=== PATIENT | female | born 1960 | race Caucasian/White ===

== ENCOUNTER 2017-04-16 15:52 | Inpatient (IN) | payer OTHER ==
[~2017-04-16] VITALS: Ht 152.4 cm; Wt 91.0 kg
[~2017-04-16 15:52] MED LIST: ASPI-516 CHEW; CLAR10CA3 PO; FLUT50SP EACH NARE; HUMALOG SQ; INSU1INJ18 SQ; LISI20TA PO; METF500T4 PO; MISCTAB12; SIMV40TA PO; SITA1TAB2 PO; VITA20003
[2017-04-16 16:02] VITALS: BP 114/68; PULSE 82; RESP 18; TEMP 98.2; O2SAT 99
--- NOTE | 2017-04-16 17:02 | RADRPT ---
EXAM DATE/TIME: 04/16/2017 16:17 [facility] COMPARISON: No previous studies available for comparison. INDICATIONS : Left shoulder pain post fall today MEDICAL HISTORY : None. SURGICAL HISTORY : None. ENCOUNTER: Initial ACUITY: 1 day PAIN SCORE: 10/10 LOCATION: Left proximal humerus FINDINGS: Of the proximal humerus as spares the humeral head. There are extensive degenerative changes at the AC joint and glenoid. Chronic rotator cuff tear suspected. CONCLUSION: Fracture proximal humerus. Emery Jolly MD FACR on April 16, 2017 at 17:00 Board Certified Radiologist. This report was verified electronically.
[2017-04-16] MEDS ORDERED: ONDANSETRON HCL 4 MG/2 ML VIAL IV PUSH ONE (19:30)
[2017-04-16] MEDS ORDERED: MORPHINE SULFATE 4 MG/ML INJ IV PUSH ONE (19:30)
--- NOTE | 2017-04-16 19:30 | PD ---
HPI Chief Complaint: Injury Time Seen by Provider: 19:18 Travel History International Travel<30 days: No Contact w/Intl Traveler<30days: No Traveled to known affect area: No History of Present Illness HPI 56-year-old female with history of diabetes, hypertension, presents via EMS for evaluation of left arm pain. At 3 PM today the patient tripped and fell, injuring her left arm. She notes severe proximal left arm pain, throbbing, constant, worse with movement. She denies any other injuries. She denies any numbness or tingling. She has no other complaints at this time. Her primary care physician is Dr. Azar. [facility] Past Medical History Medical History: Denies Significant Hx ?: Not Past Surgical History Surgical History: No Previous Surgery Social History Alcohol Use: No Tobacco Use: No Substance Use: No Allergies-Medications (Allergen,Severity, Reaction): Coded Allergies: No Known Allergies (Unverified Adverse Reaction, Unknown, 12/22/16) Reported Meds & Prescriptions Reported Meds & Active Scripts Active Humalog Inj (Insulin Human Lispro) 1,000 Unit/10 Ml Vial 18 Units SQ TIDAC Lisinopril-Hctz 20-12.5 Mg Tab 1 Tab PO DAILY Simvastatin 40 Mg Tab 40 Mg PO HS Claritin (Loratadine) 10 Mg Cap 10 Mg PO DAILY Fluticasone Nasal [place] 50 Mcg/Act Naspr 50 Mcg EACH NARE BID 50 mcg/spray Reported Metformin ER (Metformin HCl) 500 Mg [place] 500 Mg PO DAILY With evening meal Januvia (Sitagliptin Phosphate) 100 Mg Tab 100 Mg PO DAILY Basaglar Kwikpen (Insulin Glargine) 100 Unit/Ml Pen 60 Units SQ HS Vitamin D (Cholecalciferol) 2,000 Unit Tab 5,000 Aspirin 81 Mg Chew 81 Mg CHEW DAILY Tumersaid (Misc Natural Products) 1 Tab Tab Review of Systems Except as stated in HPI: all other systems reviewed are Neg Physical Exam Narrative GENERAL: Well-developed well-nourished female appears uncomfortable. SKIN: Warm and dry. HEAD: Atraumatic. Normocephalic. EYES: Pupils equal and round. No scleral icterus. No injection or drainage. ENT: No nasal bleeding or discharge. Mucous membranes pink and moist. NECK: Trachea midline. No JVD. CARDIOVASCULAR: Regular rate and rhythm. No murmur appreciated. RESPIRATORY: No accessory muscle use. Clear to auscultation. Breath sounds equal bilaterally. MUSCULOSKELETAL: There is a left arm splint in place. There is no obvious skin tenting in the proximal left arm. There is generalized tenderness to palpation of the proximal left arm. Limited range of motion secondary to pain. Distal sensation is preserved in the median, radial and ulnar nerve distributions. Radial pulse 2+. NEUROLOGICAL: Awake and alert. No obvious cranial nerve deficits. Motor grossly within normal limits. Normal speech. Data Data Last Documented VS Vital Signs Date Time Temp Pulse Resp B/P (MAP) Pulse Ox O2 Delivery O2 Flow Rate FiO2 04/16/17 19:49 87 16 123/59 (80) 96 Room Air 04/16/17 16:02 98.2 Orders Orders Shoulder, Limited(2vws) (04/16/17 ) Morphine Inj (Morphine Inj) (04/16/17 19:30) Ondansetron Inj (Zofran Inj) (04/16/17 19:30) Electrocardiogram (04/16/17 ) Complete Blood Count With Diff (04/16/17 20:02) Basic Metabolic Panel (Bmp) (04/16/17 20:02) Act Partial Throm Time (Ptt) (04/16/17 20:02) Prothrombin Time / Inr (Pt) (04/16/17 20:02) Elbow, Complete (4 Vws) (04/16/17 ) Diet 1999 Ada Cons Carb (04/16/17 Dinner) Sling And Swathe (04/16/17 ) Consult Orthopedic (04/16/17 ) Admit Order (Ed Use Only) (04/16/17 20:20) Bedside Glucose KHALIF.CSUGAR (04/16/17 20:19) Blood Glucose Goal (Criteria) (04/16/17 20:19) Hypoglycemia 70 Mg/Dl Or < (04/16/17 20:19) Notify Dr: Other (04/16/17 20:19) Dextrose 50% In Ruy (Vial) Inj (D50w (Vi (04/16/17 20:30) Glucagon Inj (Glucagon Inj) (04/16/17 20:30) Insulin Aspart Supplemtl Scale (Novolog (04/16/17 21:00) Admit To Inpatient (04/16/17 ) Vital Signs (Adult) Q4H (04/16/17 20:19) Activity Oob With Assistance (04/16/17 20:19) Intake + Output KHLAIF.QSHIFT (04/16/17 20:19) Diet Npo (04/17/17 Breakfast) Diet Regular Basic (04/16/17 Dinner) Sodium Chlor 0.9% 1000 Ml Inj (Ns 1000 M (04/16/17 20:19) Sodium Chloride 0.9% Flush (Ns Flush) (04/16/17 20:30) Sodium Chloride 0.9% Flush (Ns Flush) (04/16/17 21:00) Ondansetron Inj (Zofran Inj) (04/16/17 20:30) Comprehensive Metabolic Panel (04/17/17 06:00) Complete Blood Count With Diff (04/17/17 06:00) Scd Bilateral/Knee High KHALIF.BID (04/16/17 20:19) Ab Bilateral/Knee High KHALIF.QSHIFT (04/16/17 20:21) Acetaminophen (Tylenol) (04/16/17 20:30) Acetamin-Hydrocod 325-5 Mg ([place] 5-325 (04/16/17 20:30) Morphine Inj (Morphine Inj) (04/16/17 20:30) Docusate Sodium-Senna ([place]-Colace) (04/16/17 21:00) Magnesium Hydroxide Liq (Milk Of Magnesi (04/16/17 20:30) Sennosides (Senokot) (04/16/17 20:30) Bisacodyl Supp (Dulcolax Supp) (04/16/17 20:30) Lactulose Liq (Lactulose Liq) (04/16/17 20:30) Inpatient Certification (04/16/17 ) Loratadine (Claritin) (04/17/17 09:00) (Nf) Simvastatin (04/16/17 21:00) MDM Medical Decision Making Medical Screen Exam Complete: Yes Emergency Medical Condition: Yes Medical Record Reviewed: Yes Differential Diagnosis Proximal humeral fracture, shoulder dislocation, acromioclavicular separation, contusion Narrative Course The patient will be given morphine and Zofran. X-ray imaging reveals proximal left humeral fracture. I discussed the results of the x-ray with HEMANTH Steward mill tender second operator with orthopedist Dr. Degroot and he would like the patient be placed in a sling, admitted to the hospitalist service, NPO after midnight. Diagnosis Primary Impression: Left humeral fracture Admitting Information Admitting Physician Requests: Matt Orr Apr 16, 2017 19:30
[2017-04-16 19:49] VITALS: BP 123/59; PULSE 87; RESP 16; O2SAT 96
--- NOTE | 2017-04-16 20:22 | HHI.HP ---
[facility] Cinthia Azar, DIMA Admission Diagnosis Left humerus fracture Diagnoses: (1) Left humeral fracture Diagnosis: Principal (2) Leukocytosis Diagnosis: Principal (3) HTN (hypertension) Diagnosis: Principal (4) DM (diabetes mellitus) Diagnosis: Principal Travel History International Travel<30 Days: No Contact w/Intl Traveler <30 Da: No Traveled to Known Affected Are: No History of Present Illness This is a 56-year-old female with a PMH of HTN and DM who is brought to the ER by EMS in her left arm pain after fall. Per patient, she tripped and fell earlier this afternoon with immediate complaints of left arm pain. Pain is constant, sharp/throbbing, 10 out of 10, nonradiating, worse with movement. No other injuries reported. On arrival, BP 114/68, HR 82, O2 sat 99% on RA, Afebrile. CBC 15.2. Elbow X-ray negative. Shoulder X-ray fracture proximal humerus. Dr. Tovar consulted by ER physician, plan is for surgical intervention a.m. Review of Systems Except as stated in HPI: all other systems reviewed are Neg ROS: 14 point review of systems otherwise negative. Past Family Social History Past Medical History PMH: HTN and DM Past Surgical History PAST SURGICAL HISTORY: None Allergies: Coded Allergies: No Known Allergies (Unverified Allergy, Unknown, 04/16/17) Family History PAST FAMILY HISTORY: Reviewed. No h/o DM or CAD Social History PAST SOCIAL HISTORY: Negative for alcohol, tobacco or drugs. Physical Exam Vital Signs Vital Signs Date Time Temp Pulse Resp B/P (MAP) Pulse Ox O2 Delivery O2 Flow Rate FiO2 04/16/17 19:49 87 16 123/59 (80) 96 Room Air 04/16/17 16:02 98.2 82 18 114/68 (83) 99 Physical Exam PE: GENERAL: Middle-aged female in no acute distress. HEENT: PERRLA, EOMI. No scleral icterus or conjunctival pallor. No lid lag or facial droop. CARDIOVASCULAR: Regular rate and rhythm. No obvious murmurs to auscultation. No chest tenderness to palpation. RESPIRATORY: No obvious rhonchi or wheezing. Clear to auscultation. Breath sounds equal bilaterally. GASTROINTESTINAL: Abdomen soft, non-tender, nondistended. BS normal. MUSCULOSKELETAL: Extremities without clubbing, cyanosis, or edema. No obvious deformities. Decreased ROM of LUE due to injury. Pulses intact. NEUROLOGICAL: Awake, alert and oriented x4. No focal neurologic deficits. Moving both upper and lower extremities spontaneously. Caprini VTE Risk Assessment Caprini VTE Risk Assessment: No/Low Risk (score <= 1) Caprini Risk Assessment Model Point Value = 1 Point Value = 2 Point Value = 3 Point Value = 5 Age 41-60 Minor surgery BMI > 25 kg/m2 Swollen legs Varicose veins or History of unexplained or recurrent spontaneous Oral contraceptives or hormone replacement Sepsis (< 1 month) Serious lung disease, including pneumonia (< 1 month) Abnormal pulmonary function Acute myocardial infarction Congestive heart failure (< 1 month) History of inflammatory bowel disease Medical patient at bed rest Age 61-74 Arthroscopic surgery Major open surgery (> 45 min) Laparoscopic surgery (> 45 min) Malignancy Confined to bed (> 72 hours) Immobilizing plaster cast Central venous access Age >= 75 History of VTE Family history of VTE Factor V Leiden Prothrombin [id number] Lupus anticoagulant Anticardiolipin antibodies Elevated serum homocysteine Heparin-induced thrombocytopenia Other congenital or acquired thrombophilia Stroke (< 1 month) Elective arthroplasty Hip, pelvis, or leg fracture Acute spinal cord injury (< 1 month) Prophylaxis Regimen Total Risk Factor Score Risk Level Prophylaxis Regimen 0-1 Low Early ambulation 2 Moderate Order ONE of the following: *Sequential Compression Device (SCD) *Heparin 5000 units SQ BID 3-4 Higher Order ONE of the following medications: *Heparin 5000 units SQ TID *Enoxaparin/Lovenox 40 mg SQ daily (WT < 150 kg, CrCl > 30 mL/min) *Enoxaparin/Lovenox 30 mg SQ daily (WT < 150 kg, CrCl > 10-29 mL/min) *Enoxaparin/Lovenox 30 mg SQ BID (WT < 150 kg, CrCl > 30 mL/min) AND/OR *Sequential Compression Device (SCD) 5 or more Highest Order ONE of the following medications: *Heparin 5000 units SQ TID (Preferred with Epidurals) *Enoxaparin/Lovenox 40 mg SQ daily (WT < 150 kg, CrCl > 30 mL/min) *Enoxaparin/Lovenox 30 mg SQ daily (WT < 150 kg, CrCl > 10-29 mL/min) *Enoxaparin/Lovenox 30 mg SQ BID (WT < 150 kg, CrCl > 30 mL/min) AND *Sequential Compression Device (SCD) Assessment and Plan Problem List: (1) Left humeral fracture ICD Code: S42.302A - Unspecified fracture of shaft of humerus, left arm, initial encounter for closed fracture Status: Acute (2) Leukocytosis ICD Code: D72.829 - Elevated white blood cell count, unspecified (3) HTN (hypertension) ICD Code: I10 - Essential (primary) hypertension (4) DM (diabetes mellitus) ICD Code: E11.9 - Type 2 diabetes mellitus without complications Assessment and Plan A/P: 1. Left Humerus Fracture: s/p fall w/ c/o LUE Pain, Shoulder X-ray w/ proximal humerus fracture, images reviewed by me. Dr. Tovar consulted, plan is for surgical intervention a.m. NPO, IVF, follow up pre-op labs. Analgesics /antiemetics as needed. 2. Leukocytosis: WBC 15, afebrile. Likely reactive secondary to fall/injury. Check repeat labs in am for trend. 3. DM: Sliding scale w/ Accu-Cheks. Hold home antihyperglycemics for surgery. 4. HTN: Monitor BP. Resume home medications. 5. DVT Prophylaxis: Anticoagulation post op 6. Social work for DC planning as needed. 7. Case discussed at length with ER physician, labs/records/imaging reviewed by me. Physician Certification 2 Midnight Certification Type: Admission for Inpatient Services Order for Inpatient Services The services are ordered in accordance with Medicare regulations or non- Medicare payer requirements, as applicable. In the case of services not specified as inpatient-only, they are appropriately provided as inpatient services in accordance with the 2-midnight benchmark. Estimated LOS (days): 2 days is the estimated time the patient will need to remain in the hospital, assuming treatment plan goals are met and no additional complications. Post-Hospital Plan: Not yet determined Siomara Wilson MD Apr 16, 2017 20:22
[2017-04-16] MEDS ORDERED: MORPHINE SULFATE 2 MG/ML INJ IV PUSH PRN (20:30)
[2017-04-16] MEDS ORDERED: SODIUM CHLORIDE 0.9% FLUSH 10 ML FLUSH IV FLUSH PRN (20:30)
[2017-04-16] MEDS ORDERED: ACETAMINOPHEN 325 MG TAB PO PRN (20:30)
[2017-04-16] MEDS ORDERED: LACTULOSE SYRUP 20 GM/30 ML CUP PO PRN (20:30)
[2017-04-16] MEDS ORDERED: SENNOSIDES 8.6 MG TAB PO PRN (20:30)
[2017-04-16] MEDS: SODIUM CHLOR 0.9% 1000 ML INJ 1,000 ML IV SCH ×2 (20:30→22:49)
[2017-04-16] MEDS ORDERED: DEXTROSE 50% IN WATER 50 ML VIAL(D50) IV PUSH PRN (20:30)
[2017-04-16] MEDS ORDERED: BISACODYL 10 MG SUPP RECTAL PRN (20:30)
[2017-04-16] MEDS ORDERED: GLUCAGON 1 MG/ML VIAL OTHER PRN (20:30)
[2017-04-16] MEDS ORDERED: NON-FORMULARY DRUG (Simvastatin 40 MG) PO SCH (21:00)
--- NOTE | 2017-04-16 21:04 | RADRPT ---
EXAM DATE/TIME: 04/16/2017 20:40 [facility] COMPARISON: No previous studies available for comparison. INDICATIONS : Left elbow pain post fall today MEDICAL HISTORY : None. SURGICAL HISTORY : None. ENCOUNTER: Initial ACUITY: 1 day PAIN SCORE: 10/10 LOCATION: Left posterior elbow FINDINGS: Two view examination of the left elbow demonstrates no soft tissue swelling, joint effusion, fracture or dislocation. Bony mineralization is normal. CONCLUSION: No evidence of fracture or dislocation. Steven Ventura MD on April 16, 2017 at 21:02 Board Certified Radiologist. This report was verified electronically.
[2017-04-16] MEDS: DOCUSATE SODIUM 50 MG/SENNA 8.6 MG TAB PO SCH (21:27)
[2017-04-16] MEDS: PRAVASTATIN SOD 80 MG TAB PO SCH (21:27)
[2017-04-16] MEDS: SODIUM CHLORIDE 0.9% FLUSH 10 ML FLUSH IV FLUSH SCH (21:27)
[2017-04-16] MEDS: INSULIN ASPART SUPPLEMENTAL SCALE SQ SCH (21:28)
[2017-04-16 21:51] LABS: AUTOMATED NEUTROPHIL # 13.2 TH/MM3 (1.8-7.7); BASOPHIL # 0.1 TH/MM3 (0-0.2); BASOPHIL % 0.4 % (0.0-2.0); EOSINOPHIL % 0.1 % (0.0-4.0); HEMATOCRIT 43.6 % (35.0-46.0); HEMOGLOBIN 14.9 GM/DL (11.6-15.3); LYMPH % 9.2 % (9.0-44.0); LYMPHOCYTE # 1.4 TH/MM3 (1.0-4.8); MEAN CELL VOLUME 86.7 FL (80.0-100.0); MEAN CORPUSCULAR HEMOGLOBIN 29.7 PG (27.0-34.0); MEAN CORPUSCULAR HGB CONC 34.3 % (32.0-36.0); MEAN PLATELET VOLUME 8.2 FL (7.0-11.0); MONO % 3.5 % (0.0-8.0); MONOCYTE # 0.5 TH/MM3 (0-0.9); NEUT % 86.8 % (16.0-70.0); PLATELET COUNT 354 TH/MM3 (150-450); RED BLOOD COUNT 5.03 MIL/MM3 (4.00-5.30); RED CELL DISTRIBUTION WIDTH 13.3 % (11.6-17.2); WHITE BLOOD COUNT 15.2 TH/MM3 (4.0-11.0)
[2017-04-16 22:00] VITALS: BP 117/70; PULSE 90; RESP 16; TEMP 97.7; O2SAT 98
[2017-04-16] MEDS ORDERED: SODIUM CHLORID 0.9% 500 ML IV PRN (22:00)
[2017-04-16] MEDS ORDERED: CHLORHEXIDINE GLUCONATE 2 % 1 PACK (2 CLOTHS) TOPICAL PRN (22:00)
[2017-04-16] MEDS ORDERED: LACTATED RINGER'S 1000 ML IV PRN (22:00)
[2017-04-16] MEDS ORDERED: POVIDONE IODINE 5% (ANTISEPSIS KIT) 4 APPLICATIONS EACH NARE PRN (22:00)
[2017-04-16 22:27] LABS: BICARBONATE 17.3 MEQ/L (21.0-32.0); CREATININE 0.84 MG/DL (0.50-1.00)
[2017-04-16] MEDS: ACETAMINOPHEN/HYDROcodone 325 MG/5 MG TAB PO PRN (23:29)
[2017-04-17] VITALS: BP 104/60; PULSE 94; RESP 16; TEMP 97.2; O2SAT 95
[2017-04-17] MEDS ORDERED: INSULIN ASPART 1,000 UNITS/10 ML VIAL SQ ONE (02:15)
[2017-04-17 04:00] VITALS: BP 128/64; PULSE 78; RESP 16; TEMP 97.8; O2SAT 96
[2017-04-17] MEDS: ACETAMINOPHEN/HYDROcodone 325 MG/5 MG TAB PO PRN (06:40)
[2017-04-17 06:51] LABS: AUTOMATED NEUTROPHIL # 5.8 TH/MM3 (1.8-7.7); BASOPHIL # 0.1 TH/MM3 (0-0.2); BASOPHIL % 0.7 % (0.0-2.0); EOSINOPHIL # 0.1 TH/MM3 (0-0.4); HEMATOCRIT 40.2 % (35.0-46.0); HEMOGLOBIN 13.8 GM/DL (11.6-15.3); LYMPH % 29.4 % (9.0-44.0); LYMPHOCYTE # 2.9 TH/MM3 (1.0-4.8); MEAN CORPUSCULAR HEMOGLOBIN 29.5 PG (27.0-34.0); MEAN CORPUSCULAR HGB CONC 34.3 % (32.0-36.0); MEAN PLATELET VOLUME 7.4 FL (7.0-11.0); MONO % 9.4 % (0.0-8.0); MONOCYTE # 0.9 TH/MM3 (0-0.9); NEUT % 59.5 % (16.0-70.0); PLATELET COUNT 300 TH/MM3 (150-450); RED BLOOD COUNT 4.68 MIL/MM3 (4.00-5.30); RED CELL DISTRIBUTION WIDTH 13.3 % (11.6-17.2); WHITE BLOOD COUNT 9.8 TH/MM3 (4.0-11.0)
[2017-04-17] MEDS ORDERED: HYDR-3580 PO (06:53)
--- NOTE | 2017-04-17 06:54 | HHI.FF ---
Face to Face Verification Diagnosis: (1) Left humeral fracture Occupational Therapy Left UE Weight Bearing: Non WB Left UE Range of Motion: Pendular Nursing Dressing Changes: Daily dressing change, Xeroform, Coverderm/Primapore I have seen patient James Cartagena on 04/17/17. My clinical findings support the need for the requested home health care services because: Ltd mobility - disease progression I certify that my clinical findings support that this patient is homebound because: Post-op weakness Bin Shirley/Seed Cleaner PA Apr 17, 2017 06:54
--- NOTE | 2017-04-17 06:57 | PD.ORT.PN ---
Subjective Subjective Remarks s/p fall at work left shoulder pain. Objective Vitals Vital Signs Date Time Temp Pulse Resp B/P (MAP) Pulse Ox O2 Delivery O2 Flow Rate FiO2 04/17/17 04:00 97.8 78 16 128/64 (85) 96 04/17/17 00:00 97.2 94 16 104/60 (75) 95 04/16/17 22:00 97.7 90 16 117/70 (86) 98 04/16/17 19:49 87 16 123/59 (80) 96 Room Air 04/16/17 16:02 98.2 82 18 114/68 (83) 99 I/O 04/16/17 04/16/17 04/16/17 04/17/17 04/17/17 04/17/17 07:00 15:00 23:00 07:00 15:00 23:00 Intake Total 0 ml Balance 0 ml Intake Oral 0 ml # Voids 1 # Bowel Movements 0 Result Diagram: 04/17/17 0609 04/16/170 Other Results Laboratory Tests Test 04/16/17 21:30 Prothromb Time International Ratio 1.0 RATIO Prothrombin Time 10.0 SEC (9.8-11.6) Objective Remarks LUE: +swelling of shoulder and hand. nvi. +sling Assessment & Plan Assessment and Plan 1) Left Proximal Humerus Fracture -npo -surgery today with Dr Degroot -Consents -rx on chart -plan for DC home Wednesday with [facility] -f/u with Zane or SHARIFA in 2 weeks Bin Shirley/Corporate Controller SHARIFA Apr 17, 2017 06:57
[2017-04-17 07:23] LABS: ALBUMIN 3.4 GM/DL (3.4-5.0); ALKALINE PHOSPHATASE 74 U/L (45-117); ALT (GPT) 22 U/L (10-53); AST (GOT) 16 U/L (15-37); BICARBONATE 25.5 MEQ/L (21.0-32.0); BLOOD UREA NITROGEN 23 MG/DL (7-18); CALCIUM 8.9 MG/DL (8.5-10.1); CHLORIDE 100 MEQ/L (98-107); CREATININE 0.88 MG/DL (0.50-1.00); GLOMERULAR FILTRATION RATE 66 ML/MIN (>89); GLUCOSE,RANDOM 316 MG/DL (74-106); SODIUM (NA) 134 MEQ/L (136-145); TOTAL BILIRUBIN ADULT 0.3 MG/DL (0.2-1.0); TOTAL PROTEIN 6.9 GM/DL (6.4-8.2)
[2017-04-17] MEDS: INSULIN ASPART SUPPLEMENTAL SCALE SQ SCH ×4 (07:29→21:47)
[2017-04-17] MEDS ORDERED: VANCOMYCIN HCL 1000 MG VIAL ONE (07:32)
[2017-04-17] MEDS ORDERED: GENTAMICIN SULFATE 80 MG/2 ML VIAL ONE (07:32)
[2017-04-17] MEDS ORDERED: ACETAMINOPHEN 1000 MG/100 ML 100 ML IV ONE (07:33)
[2017-04-17 08:00] VITALS: BP 131/68; PULSE 75; RESP 18; TEMP 97.1; O2SAT 95
[2017-04-17] MEDS ORDERED: ceFAZolin 2 GM PREMIX 50 ML ONE (08:07)
[2017-04-17] MEDS: LORATADINE 10 MG TAB PO SCH (09:00)
[2017-04-17] MEDS: DOCUSATE SODIUM 50 MG/SENNA 8.6 MG TAB PO SCH ×2 (09:00→21:46)
[2017-04-17] MEDS: SODIUM CHLORIDE 0.9% FLUSH 10 ML FLUSH IV FLUSH SCH ×2 (09:00→21:47)
--- NOTE | 2017-04-17 09:25 | PD.ORT.PN ---
Subjective Subjective Remarks POD 0 s/p ORIF left proximal humerus stable in PACU Objective Vitals Vital Signs Date Time Temp Pulse Resp B/P (MAP) Pulse Ox O2 Delivery O2 Flow Rate FiO2 04/17/17 08:00 97.1 75 18 131/68 (89) 95 04/17/17 04:00 97.8 78 16 128/64 (85) 96 04/17/17 00:00 97.2 94 16 104/60 (75) 95 04/16/17 22:00 97.7 90 16 117/70 (86) 98 04/16/17 19:49 87 16 123/59 (80) 96 Room Air 04/16/17 16:02 98.2 82 18 114/68 (83) 99 I/O 04/16/17 04/16/17 04/16/17 04/17/17 04/17/17 04/17/17 07:00 15:00 23:00 07:00 15:00 23:00 Intake Total 750 ml Balance 750 ml Intake Oral 0 ml IV Total 750 ml # Voids 1 # Bowel Movements 0 Result Diagram: 04/17/17 0609 04/17/17 0609 Other Results Laboratory Tests Test 04/16/17 21:30 Prothromb Time International Ratio 1.0 RATIO Prothrombin Time 10.0 SEC (9.8-11.6) Objective Remarks LUE: dressings clean and dry. intact. +sling. +cap refill. Assessment & Plan Assessment and Plan 1) Left Proximal Humerus Fracture s/p ORIF - POD 0 -NWB -pendular exercises -sling -rx on chart -plan for DC home Wednesday with [facility] -f/u with Zane or PA in 2 weeks Bin Shirley/Custom Tailor PA Apr 17, 2017 09:25
--- NOTE | 2017-04-17 09:32 | MB ---
cc: Keith Degroot MD DATE OF CONSULT: 04/17/2017 REASON FOR CONSULTATION: Left proximal humerus fracture. CONSULTING PHYSICIAN: Dr. Wilson. HISTORY OF PRESENT ILLNESS: James is a 56-year-old female who was at work. She tripped and fell. 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 She landed on her left arm. She had immediate left arm and shoulder pain. She presented to the emergency room where x-rays revealed a displaced left proximal humerus fracture. She is currently awake and alert on the orthopedic floor. Her only complaint is her left arm. She denies dizziness, syncope or loss of consciousness. Pain is worse with movement. PAST MEDICAL HISTORY: ILLNESSES: Hypertension and diabetes. SURGERIES: None. ALLERGIES: NONE. MEDICATIONS: Please seem EMR for complete list of inpatient medications. These were reviewed. FAMILY HISTORY: Noncontributory. She denies any familial medical problems. SOCIAL HISTORY: The patient denies alcohol, tobacco or drug use. REVIEW OF SYSTEMS: The patient denies headache, visual changes, neck pain, chest pain, shortness of breath, abdominal pain, nausea, vomiting or recent weight loss, fevers or chills, numbness or tingling of extremities. She complains of left arm and shoulder pain. Pain is worse with movement. PHYSICAL EXAMINATION: GENERAL: The patient is a well developed, well nourished 56-year-old female. She appears moderately overweight. She is alert and oriented x 3. VITAL SIGNS: Temperature 97.8, pulse 78, respirations 16, blood pressure 124/64, O2 sats 96% on room air. HEAD: The patient is normocephalic. EYES: Pupils are equal. NECK: Soft, nontender. Trachea is midline. ABDOMEN: Soft, nontender, nondistended. EXTREMITIES: Examination of the left arm reveals mild swelling around her shoulder. She has pain with any shoulder motion. She has no tenderness around her elbow, wrist or fingers. She has intact sensation in all fingers. Radial pulse is palpable. Skin is intact. Sensation is intact in all fingers. Examination of her right arm reveals no pain with shoulder, elbow, and wrist motion. She has intact sensation in all fingers. She has good cap refill in all fingers. Skin is intact. Examination of bilateral lower extremities reveals no pain with hip, knee or ankle motion. Skin is intact to both feet. Dorsalis pedis pulses are palpable. Skin is intact to both feet. IMAGING STUDIES: X-rays of left shoulder were reviewed. X-rays reveal a displaced left proximal humerus fracture. The glenohumeral joint appears to be reduced. LABORATORY STUDIES: The patient has a white blood cell count of 9.8, hematocrit of 40.2 and hemoglobin of 13.8. INR is 1.0. BUN is 22 and creatinine is 0.84. IMPRESSION: 1. Diabetes. 2. Hypertension. 3. Displaced left proximal humerus fracture. PLAN: Treatment options were discussed with the patient. At this point I would recommend open reduction and internal fixation of left proximal humerus. I discussed both surgical and nonsurgical options with the patient. I discussed the risks and benefits of each. The patient states she is having tremendous pain currently and can feel the fracture ends of the bone moving around. She states that she would very much like to have surgery to help stabilize the fracture. Risks of surgery include bleeding, infection; injuries to arteries, nerves and blood vessels; nonunion, malunion, painful hardware, loss of motion, frozen shoulder, as well as medical complications including blood clot, stroke, heart attack and were discussed. All questions were answered. I will plan on surgery today. A mid-level provider in my office, nurse practitioner or PA, may see this patient on a follow-up basis and continue to implement the objective of this plan including: Starting or adjusting medications, injections of muscle, tendon, bursa or joints, cast application, orthotic or brace application, physical therapy, further radiographic studies including x-ray, MRI, CT, ultrasounds or bone scan, vascular studies, neurologic studies, or other specialist consultations, and proceeding with surgical management as appropriate. MD BRIAN Larkin/NOR[facility] , 07:19 AM , 09:31 AM
--- NOTE | 2017-04-17 09:54 | PD.OP ---
cc: Keith Tovar MD Operative Report Date of Surgery: Apr 17, 2017 Preoperative Diagnosis: Left proximal humerus fracture, left humeral shaft fracture Postoperative Diagnosis: Procedure: Open reduction internal fixation left proximal humerus, open reduction and fixation left humeral shaft fracture Surgeon: Keith Tovar Snuff Box Finisher(s): HEMANTH Villegas PA-C The surgical procedure was assisted by my physician sales service assistant. My P.A. presence was necessary throughout this case for the manipulation and positioning of the surgical extremity. My P.A. was assisting me throughout the duration of this procedure. The skill set of a physician sales service assistant was medically necessary to complete this procedure. During the surgical case the surgical nurse practitioner was working at the back table and the physician sales service assistant was directly assisting me. Operation and Findings: Patient was seen and evaluated preoperatively. Patient was found to have a displaced left proximal humerus fracture with extension down into the humeral shaft. The risks and benefits of surgical and nonsurgical options were discussed in detail and informed consent was obtained for surgery. Patient was brought to the operating room and placed on or table. IV sedation and GETA were administered by anesthesiologist. Antibiotics were given prior to incision. Operative arm and shoulder were prepped with alcohol followed by Hibiclens and draped usual sterile fashion. Timeout procedure was performed. Procedure began with a 10 inch incision over the anterior shoulder. Cephalic vein was identified. A deltopectoral approach was utilized proximally. Distally the brachialis muscle was split. The humeral shaft fracture was exposed first. Next, the proximal humerus fracture was exposed. Soft tissue was retracted. Distally the radial nerve was visualized and protected throughout the procedure. Attention was now turned to reduction of the humeral shaft. Traction was applied. Fracture fragments were manipulated to achieve excellent reduction. 2.7 cortical lag screws were used to compress these fracture fragments together. Next attention was turned to the humeral neck fracture. Gentle traction was applied. The humeral shaft was reduced to the humeral head. Fracture was manipulated to achieve excellent reduction. Multiplanar fluoroscopy confirmed well aligned fracture. Multiple K wires were used to hold provisional fixation. A Synthes long proximal humerus plate was selected and utilized to span all fractures. Plate was provisionally held in place K wires. 3.5 cortical screws were used to compress plate to bone. Fluoroscopy confirmed appropriate plate placement and fracture reduction. Multiple locking screws were now placed in the humeral head. Screws were predrilled and premeasured for appropriate length. Care was taken not to penetrate the articular surface. Additional screws were placed in the humeral shaft. Final fluoroscopy revealed well aligned fracture with well-placed hardware. Wound was thoroughly irrigated. Fascia was closed with #1 Vicryl, subcutaneous tissues closed with 3 -0 Vicryl, and skin was closed with mario. Sterile dressings were applied. Patient was placed into a sling. Patient was awakened and transferred to recovery in stable condition. Needle and sponge counts were correct. Keith Tovar MD Apr 17, 2017 09:54
[2017-04-17] MEDS ORDERED: MORPHINE SULFATE 4 MG/ML INJ IV PUSH PRN (10:00)
[2017-04-17] MEDS ORDERED: ERGOCALCIFEROL (VIT D2) 50,000 UNIT CAP PO SCH (10:00)
--- NOTE | 2017-04-17 10:19 | RADRPT ---
EXAM DATE/TIME: 04/17/2017 09:18 [place] COMPARISON: SHOULDER LEFT LTD (2VWS), April 16, 2017, 16:17. INDICATIONS : Open reduction internal fixation of the left humerus. MEDICAL HISTORY : None. SURGICAL HISTORY : None. ENCOUNTER: Subsequent ACUITY: 2 days PAIN SCORE: Non-responsive. LOCATION: Left humerus. FINDINGS: Two view examination of the left humerus demonstrates postsurgical changes following ORIF. A long ext ra medullary plate has been placed along the left humerus from the humeral head to the distal shaft. There is good apposition and reduction of the displaced fracture fragments. Glenohumeral alignment is well maintained. CONCLUSION: Satisfactory post operative appearance of the left humerus following ORIF. Neo Acosta MD on April 17, 2017 at 10:15 Board Certified Radiologist. This report was verified electronically.
[2017-04-17] MEDS ORDERED: *RESP: ALBUTEROL 2.5 MG/3 ML NEB (PRN) PERIprocedural Use ONLY NEB ONE (10:24)
[2017-04-17] MEDS ORDERED: MIDAZOLAM HCL 2 MG/2 ML VIAL ONE (10:32)
[2017-04-17] MEDS ORDERED: *MEPERIDINE 25 MG INJ VIAL PERIprocedural Use ONLY ONE (10:36)
[2017-04-17] MEDS ORDERED: *morphine SULFATE 4 MG/ML PERIprocedure ONLY ONE ×2 (10:58→11:10)
[2017-04-17 12:00] VITALS: BP 125/76; PULSE 72; RESP 18; TEMP 96; O2SAT 96
[2017-04-17] MEDS ORDERED: GLYCOPYRROLATE 1 MG/5 ML SYRINGE IV PUSH ONE (12:00)
[2017-04-17] MEDS ORDERED: ROCURONIUM INJ 50 MG/5 ML SYRINGE IV PUSH ONE (12:00)
[2017-04-17] MEDS ORDERED: LIDOCAINE HCL 1% PF 5 ML SYRINGE OTHER ONE (12:00)
[2017-04-17] MEDS ORDERED: PROPOFOL 200 MG/20 ML AMP IV ONE (12:00)
[2017-04-17] MEDS ORDERED: DEXAMETHASONE SOD PHOS 4 MG/ML VIAL IV ONE (12:00)
[2017-04-17] MEDS ORDERED: KETOROLAC TROMETHAMINE 30 MG/ML (IVP) VIAL IV PUSH ONE (12:00)
[2017-04-17] MEDS ORDERED: PHENYLEPH/NS 1000 MCG/10 ML SYR IV ONE (12:00)
[2017-04-17] MEDS ORDERED: NEOSTIGMINE 5 MG/5 ML SYRINGE IV PUSH ONE (12:00)
[2017-04-17] MEDS ORDERED: ONDANSETRON HCL 4 MG/2 ML VIAL IV ONE (12:00)
[2017-04-17] MEDS: ACETAMINOPHEN/HYDROcodone 325 MG/10 MG TAB PO PRN ×2 (12:24→16:33)
[2017-04-17] MEDS: CALCIUM/VITAMIN D 250 MG/125 U TAB PO SCH ×2 (12:24→16:33)
[2017-04-17] MEDS: SODIUM CHLOR 0.9% 1000 ML INJ 1,000 ML IV SCH (12:25)
[2017-04-17] MEDS ORDERED: DO NOT ADM ANY ANTICOAGULANT DRUGS PRN (12:30)
[2017-04-17] MEDS: ONDANSETRON HCL 4 MG/2 ML VIAL IVP PRN ×2 (15:47→21:48)
[2017-04-17] MEDS: ceFAZolin 2 GM PREMIX 50 ML IV SCH (15:48)
[2017-04-17 16:00] VITALS: BP 104/57; PULSE 65; RESP 18; TEMP 97.2; O2SAT 97
--- NOTE | 2017-04-17 16:04 | HHI.PR ---
Subjective Remarks pain controlled states good hypoglycemic awareness last A1C- 9.6 Objective Vitals Vital Signs Date Time Temp Pulse Resp B/P (MAP) Pulse Ox O2 Delivery O2 Flow Rate FiO2 04/17/17 12:10 Nasal Cannula 2.00 04/17/17 12:00 96.0 72 18 125/76 (92) 96 04/17/17 11:45 98.2 81 15 96/56 (69) 97 Nasal Cannula 2 04/17/17 11:30 83 15 86/47 (60) 98 Nasal Cannula 2 04/17/17 11:15 78 14 92/55 (67) 97 Nasal Cannula 2 04/17/17 11:00 86 16 102/56 (71) 96 Nasal Cannula 2 04/17/17 10:45 85 16 122/57 (78) 96 Nasal Cannula 2 04/17/17 10:30 88 18 109/53 (71) 95 Aerosol Mask 04/17/17 10:23 98.0 75 10 124/57 (79) 92 Aerosol Mask 04/17/17 08:00 97.1 75 18 131/68 (89) 95 04/17/17 04:00 97.8 78 16 128/64 (85) 96 04/17/17 00:00 97.2 94 16 104/60 (75) 95 04/16/17 22:00 97.7 90 16 117/70 (86) 98 04/16/17 19:49 87 16 123/59 (80) 96 Room Air I/O 04/16/17 04/16/17 04/16/17 04/17/17 04/17/17 04/17/17 07:00 15:00 23:00 07:00 15:00 23:00 Intake Total 750 ml 1000 ml Output Total 100 ml 100 ml Balance 750 ml 900 ml -100 ml Intake Oral 0 ml IV Total 750 ml 1000 ml Output Emesis 100 ml Estimated Blood Loss 100 ml # Voids 1 # Bowel Movements 0 Result Diagram: 04/17/1709 04/17/17 0609 Imaging Last Impressions Humerus X-Ray 04/17/17 0000 Signed Impressions: Service Date/Time: Monday, April 17, 2017 09:18 - CONCLUSION: Satisfactory post operative appearance of the left humerus following ORIF. Neo Acosta MD Shoulder X-Ray 04/16/17 0000 Signed Impressions: Service Date/Time: Sunday, April 16, 2017 16:17 - CONCLUSION: Fracture proximal humerus. Emery Jolly MD FACR Elbow X-Ray 04/16/17 0000 Signed Impressions: Service Date/Time: Sunday, April 16, 2017 20:40 - CONCLUSION: No evidence of fracture or dislocation. Steven Ventura MD Objective Remarks awake and alert anicteric lungs- no rales regular rhythm abdomen-soft nontender MEHRAN- post op dressing in place LE- no edema Procedures 04/16- ORIF left proximal humeral fracture A/P Problem List: (1) Left humeral fracture ICD Code: S42.302A - Unspecified fracture of shaft of humerus, left arm, initial encounter for closed fracture Status: Acute (2) Leukocytosis ICD Code: D72.829 - Elevated white blood cell count, unspecified (3) HTN (hypertension) ICD Code: I10 - Essential (primary) hypertension (4) DM (diabetes mellitus) ICD Code: E11.9 - Type 2 diabetes mellitus without complications Assessment and Plan 56 years old right handed female S/P fall S/P ORIF Left proximal Humerus Fracture 04/16- : NWB LUE. pendulum exercises Ortho ff Leukocytosis: WBC 15, afebrile. Likely reactive secondary to fall/injury.- IMproved DM: last a1C- 9.6 Sliding scale w/ Accu-Cheks. Restart evening Levemir at half home dose- 20 units hs Novolog 8 units tid with sliding scale (at home was on 18) Hyponatremia- improved. Likely secondary to hyperglycemia HTN: restart meds tomorrow. on JERRY/HCTz. Monitor BP. HYperlipedmia- on statins DVT Prophylaxis: Increase activity. SCF- LE Social work for DC planning as needed. Possible DC tomorrow Papo Jamil MD Apr 17, 2017 16:04
[2017-04-17] MEDS ORDERED: INSULIN ASPART 1,000 UNITS/10 ML VIAL SQ SCH (17:00)
[2017-04-17] MEDS: INSULIN ASPART 1,000 UNITS/10 ML VIAL SQ SCH ×2 (17:00→17:56)
[2017-04-17 20:00] VITALS: BP 128/59; PULSE 78; RESP 18; TEMP 97.3; O2SAT 98
[2017-04-17] MEDS ORDERED: INSULIN DETEMIR 100 UNITS/ML VIAL SQ SCH (21:00)
[2017-04-17] MEDS: VANCOMYCIN INJ 1,000 MG in SODIUM CHLOR 0.9% 250 ML INJ 250 ML IV SCH (21:46)
[2017-04-17] MEDS: PRAVASTATIN SOD 80 MG TAB PO SCH (21:46)
[2017-04-18] VITALS (7 sets, daily range): BP systolic 122–152; BP diastolic 65–80; PULSE 75–86; RESP 16–22; TEMP 95.6–99; O2SAT 93–98
--- NOTE | 2017-04-18 00:02 | EKG ---
Date Performed: 04/16/2017 Time Performed: 22:35:47 PTAGE: 56 years EKG: Sinus rhythm POSSIBLE LEFT ATRIAL ENLARGEMENT LOW QRS VOLTAGE IN PRECORDIAL LEADS SEPTAL MYOCARDIAL INFARCTION , PROBABLY OLD NON-SPECIFIC ST/T WAVE CHANGES ABNORMAL ECG NO PREVIOUS TRACING DOCTOR: Higinio Gray Interpretating Date/Time 04/18/2017 00:00:47
[2017-04-18] MEDS: ceFAZolin 2 GM PREMIX 50 ML IV SCH ×2 (01:08→08:20)
[2017-04-18] MEDS: SODIUM CHLOR 0.9% 1000 ML INJ 1,000 ML IV SCH ×3 (02:30→22:30)
[2017-04-18] MEDS: ACETAMINOPHEN/HYDROcodone 325 MG/10 MG TAB PO PRN ×6 (03:50→23:45)
--- NOTE | 2017-04-18 08:16 | HHI.PR ---
Subjective Remarks pain controlled BS elevated Objective Vitals Vital Signs Date Time Temp Pulse Resp B/P (MAP) Pulse Ox O2 Delivery O2 Flow Rate FiO2 04/18/17 03:50 97.4 76 17 145/67 (93) 97 04/18/17 00:00 97.4 75 17 129/65 (86) 97 04/17/17 21:47 Room Air 04/17/17 20:00 97.3 78 18 128/59 (82) 98 04/17/17 16:00 97.2 65 18 104/57 (73) 97 04/17/17 12:10 Nasal Cannula 2.00 04/17/17 12:00 96.0 72 18 125/76 (92) 96 04/17/17 11:45 98.2 81 15 96/56 (69) 97 Nasal Cannula 2 04/17/17 11:30 83 15 86/47 (60) 98 Nasal Cannula 2 04/17/17 11:15 78 14 92/55 (67) 97 Nasal Cannula 2 04/17/17 11:00 86 16 102/56 (71) 96 Nasal Cannula 2 04/17/17 10:45 85 16 122/57 (78) 96 Nasal Cannula 2 04/17/17 10:30 88 18 109/53 (71) 95 Aerosol Mask 04/17/17 10:23 98.0 75 10 124/57 (79) 92 Aerosol Mask I/O 04/17/17 04/17/17 04/17/17 04/18/17 04/18/17 04/18/17 07:00 15:00 23:00 07:00 15:00 23:00 Intake Total 750 ml 1120 ml 250 ml 1500 ml 840 ml Output Total 100 ml 100 ml 150 ml Balance 750 ml 1020 ml 150 ml 1500 ml 690 ml Intake Oral 0 ml 120 ml 840 ml IV Total 750 ml 1000 ml 250 ml 1500 ml Output Emesis 100 ml 150 ml Estimated Blood Loss 100 ml # Voids 1 2 1 6 # Bowel Movements 0 0 Result Diagram: 04/17/17 0609 04/17/17 0609 Imaging Last Impressions Humerus X-Ray 04/17/17 0000 Signed Impressions: Service Date/Time: Monday, April 17, 2017 09:18 - CONCLUSION: Satisfactory post operative appearance of the left humerus following ORIF. Neo Acosta MD Shoulder X-Ray 04/16/17 0000 Signed Impressions: Service Date/Time: Sunday, April 16, 2017 16:17 - CONCLUSION: Fracture proximal humerus. Emery Jolly MD FACR Elbow X-Ray 04/16/17 0000 Signed Impressions: Service Date/Time: Sunday, April 16, 2017 20:40 - CONCLUSION: No evidence of fracture or dislocation. Steven Ventura MD Objective Remarks awake and alert anicteric lungs- no rales regular rhythm abdomen-soft nontender MEHRAN- post op dressing in place LE- no edema Procedures 04/16- ORIF left proximal humeral fracture A/P Problem List: (1) Left humeral fracture ICD Code: S42.302A - Unspecified fracture of shaft of humerus, left arm, initial encounter for closed fracture Status: Acute (2) Leukocytosis ICD Code: D72.829 - Elevated white blood cell count, unspecified (3) HTN (hypertension) ICD Code: I10 - Essential (primary) hypertension (4) DM (diabetes mellitus) ICD Code: E11.9 - Type 2 diabetes mellitus without complications Assessment and Plan 56 years old right handed female S/P fall S/P ORIF Left proximal Humerus Fracture 04/16- : NWB LUE. pendulum exercises Ortho ff Leukocytosis: WBC 15, afebrile. Likely reactive secondary to fall/injury.- IMproved DM: last a1C- 9.6 Sliding scale w/ Accu-Cheks. Increase levemer dose Increase Novolog 15 units with sliding scale (at home was on 18) restart po meds - oral hypoglycemic OP ff up with PCP -reinforced goals Hyponatremia- improved. Likely secondary to hyperglycemia HTN: BP improved- higher. restart home meds as OP HYperlipedmia- on statins DVT Prophylaxis: Increase activity. SCF- LE Social work for DC planning as needed. Medically stable for DC DC if cleared with Ortho Papo Jamil MD Apr 18, 2017 08:16
[2017-04-18] MEDS: ONDANSETRON HCL 4 MG/2 ML VIAL IVP PRN (08:19)
[2017-04-18] MEDS: CALCIUM/VITAMIN D 250 MG/125 U TAB PO SCH ×3 (08:19→17:02)
[2017-04-18] MEDS: DOCUSATE SODIUM 50 MG/SENNA 8.6 MG TAB PO SCH ×2 (08:19→22:06)
[2017-04-18] MEDS: CHOLECALCIFEROL (VIT D3) 1000 UNIT TAB PO SCH (08:19)
[2017-04-18] MEDS: MAGNESIUM HYDROXIDE SUSP 30 ML CUP PO PRN ×2 (08:19→23:49)
[2017-04-18] MEDS: SODIUM CHLORIDE 0.9% FLUSH 10 ML FLUSH IV FLUSH SCH ×2 (08:20→22:10)
[2017-04-18] MEDS: LORATADINE 10 MG TAB PO SCH ×2 (08:21→22:13)
[2017-04-18] MEDS: INSULIN ASPART SUPPLEMENTAL SCALE SQ SCH ×4 (08:33→21:00)
[2017-04-18] MEDS ORDERED: PILL SPLITTER OTHER PRN (08:45)
[2017-04-18] MEDS: metFORMIN HCL 500 MG TAB PO SCH ×2 (08:47→17:10)
--- NOTE | 2017-04-18 08:52 | PD.ORT.PN ---
Subjective Subjective Remarks Moderate left shoulder pain. Aching shoulder to elbow. No pain in the hand. Questions about discharge. She is anxious about discharge. No new CP or SOB. Objective Vitals Vital Signs Date Time Temp Pulse Resp B/P (MAP) Pulse Ox O2 Delivery O2 Flow Rate FiO2 04/18/17 03:50 97.4 76 17 145/67 (93) 97 04/18/17 00:00 97.4 75 17 129/65 (86) 97 04/17/17 21:47 Room Air 04/17/17 20:00 97.3 78 18 128/59 (82) 98 04/17/17 16:00 97.2 65 18 104/57 (73) 97 04/17/17 12:10 Nasal Cannula 2.00 04/17/17 12:00 96.0 72 18 125/76 (92) 96 04/17/17 11:45 98.2 81 15 96/56 (69) 97 Nasal Cannula 2 04/17/17 11:30 83 15 86/47 (60) 98 Nasal Cannula 2 04/17/17 11:15 78 14 92/55 (67) 97 Nasal Cannula 2 04/17/17 11:00 86 16 102/56 (71) 96 Nasal Cannula 2 04/17/17 10:45 85 16 122/57 (78) 96 Nasal Cannula 2 04/17/17 10:30 88 18 109/53 (71) 95 Aerosol Mask 04/17/17 10:23 98.0 75 10 124/57 (79) 92 Aerosol Mask I/O 04/17/17 04/17/17 04/17/17 04/18/17 04/18/17 04/18/17 07:00 15:00 23:00 07:00 15:00 23:00 Intake Total 750 ml 1120 ml 250 ml 1500 ml 840 ml Output Total 100 ml 100 ml 150 ml Balance 750 ml 1020 ml 150 ml 1500 ml 690 ml Intake Oral 0 ml 120 ml 840 ml IV Total 750 ml 1000 ml 250 ml 1500 ml Output Emesis 100 ml 150 ml Estimated Blood Loss 100 ml # Voids 1 2 1 6 # Bowel Movements 0 0 Result Diagram: 04/17/17 0609 04/17/17 0609 Objective Remarks Sitting up in bed NAD, slightly anxious VSS LUE Dressing/JERRY c/d/i, mild swelling, tender upper arm, +pharmaceutical engineer, +brachiorad, +sens all 5 figners (radial, med, ulnar N) - Pt seen and evaluated by Dr. Neisha St Assessment & Plan Ortho Post Op Day #: 1 Problem List: Assessment and Plan 1) Left Proximal Humerus Fracture s/p ORIF - POD -NWB -pendular exercises -sling -rx on chart - Reviewed xrays of the humerus fracture with the patient. -Consider discharge tomorrow. Medical evaluating. Needs better medical management of DM. -f/u with Zane or SHARIFA in 2 weeks Angelina Manuel Apr 18, 2017 08:52
[2017-04-18] MEDS ORDERED: metFORMIN HCL 500 MG TAB PO SCH (09:00)
[2017-04-18] MEDS: VANCOMYCIN INJ 1,000 MG in SODIUM CHLOR 0.9% 250 ML INJ 250 ML IV SCH (09:18)
[2017-04-18 09:32] LABS: BICARBONATE 23.4 MEQ/L (21.0-32.0); CALCIUM 8.1 MG/DL (8.5-10.1); CREATININE 0.55 MG/DL (0.50-1.00)
[2017-04-18] MEDS: INSULIN ASPART 1,000 UNITS/10 ML VIAL SQ SCH ×2 (11:08→17:03)
[2017-04-18] MEDS: PRAVASTATIN SOD 80 MG TAB PO SCH (22:07)
[2017-04-18] MEDS: INSULIN DETEMIR 100 UNITS/ML VIAL SQ SCH (22:08)
[2017-04-19] VITALS (7 sets, daily range): BP systolic 108–141; BP diastolic 53–73; PULSE 82–91; RESP 17–24; TEMP 96–99.3; O2SAT 91–93
--- NOTE | 2017-04-19 07:50 | HHI.PR ---
Subjective Remarks pain controlled complains of dryness of the nose no cough exam- no wheezes, no rales Objective Vitals Vital Signs Date Time Temp Pulse Resp B/P (MAP) Pulse Ox O2 Delivery O2 Flow Rate FiO2 04/19/17 04:00 98.5 84 22 117/59 (78) 91 04/19/17 00:00 97.3 82 24 140/72 (94) 93 04/18/17 20:00 97.6 86 22 148/66 (93) 93 04/18/17 16:00 97.6 82 18 125/68 (87) 93 04/18/17 12:00 95.6 77 18 122/69 (86) 94 04/18/17 08:00 98.1 75 18 129/69 (89) 95 I/O 04/18/17 04/18/17 04/18/17 04/19/17 04/19/17 04/19/17 07:00 15:00 23:00 07:00 15:00 23:00 Intake Total 1500 ml 1926 ml Output Total 150 ml Balance 1500 ml 1776 ml Intake Oral 1440 ml IV Total 1500 ml 486 ml Output Emesis 150 ml # Voids 10 # Bowel Movements 0 Result Diagram: 04/17/17 0609 04/18/17 0832 Imaging Last Impressions Humerus X-Ray 04/17/17 0000 Signed Impressions: Service Date/Time: Monday, April 17, 2017 09:18 - CONCLUSION: Satisfactory post operative appearance of the left humerus following ORIF. Neo Acosta MD Shoulder X-Ray 04/16/17 0000 Signed Impressions: Service Date/Time: Sunday, April 16, 2017 16:17 - CONCLUSION: Fracture proximal humerus. Emery Jolly MD FACR Elbow X-Ray 04/16/17 0000 Signed Impressions: Service Date/Time: Sunday, April 16, 2017 20:40 - CONCLUSION: No evidence of fracture or dislocation. Steven Ventura MD Objective Remarks awake and alert anicteric no nuchal rigidity lungs- no rales regular rhythm abdomen-soft nontender MEHRAN- post op dressing in place LE- no edema Procedures 04/16- ORIF left proximal humeral fracture A/P Problem List: (1) Left humeral fracture ICD Code: S42.302A - Unspecified fracture of shaft of humerus, left arm, initial encounter for closed fracture Status: Acute (2) Leukocytosis ICD Code: D72.829 - Elevated white blood cell count, unspecified (3) HTN (hypertension) ICD Code: I10 - Essential (primary) hypertension (4) DM (diabetes mellitus) ICD Code: E11.9 - Type 2 diabetes mellitus without complications Assessment and Plan 56 years old right handed female S/P fall S/P ORIF Left proximal Humerus Fracture 04/16- : NWB LUE. pendulum exercises Ortho ff Leukocytosis: Likely reactive secondary to fall/injury.- IMproved DM: last a1C- 9.6 Sliding scale w/ Accu-Cheks. - better readings Increased levemer dose Increase Novolog 15 units with sliding scale (at home was on 18) restart po meds - oral hypoglycemic OP ff up with PCP -reinforced goals Nasal dryness- Saline nasal spray to both nares bid Hyponatremia- improved. Likely secondary to hyperglycemia HTN: BP improved- higher. restart home meds as OP HYperlipedmia- on statins DVT Prophylaxis: Increase activity. SCF- LE Social work for DC planning as needed. Medically stable for DC DC today ff up with PCP- Dr. Camelia Azar FF up with Ortho in 2 weeks Papo Jamil MD Apr 19, 2017 07:50
[2017-04-19] MEDS: INSULIN ASPART SUPPLEMENTAL SCALE SQ SCH ×4 (08:00→21:10)
--- NOTE | 2017-04-19 08:00 | HHI.DS ---
Discharge Summary Admission Date Apr 16, 2017 at 20:22 Discharge Date: Apr 19, 2017 Admitting Diagnosis Left humerus fracture (1) Left humeral fracture ICD Code: S42.302A - Unspecified fracture of shaft of humerus, left arm, initial encounter for closed fracture Diagnosis: Principal Status: Acute (2) Leukocytosis ICD Code: D72.829 - Elevated white blood cell count, unspecified Diagnosis: Secondary (3) HTN (hypertension) ICD Code: I10 - Essential (primary) hypertension Diagnosis: Secondary (4) DM (diabetes mellitus) ICD Code: E11.9 - Type 2 diabetes mellitus without complications Diagnosis: Secondary Procedures 04/16- ORIF left proximal humeral fracture Brief History - From Admission This is a 56-year-old female with a PMH of HTN and DM who is brought to the ER by EMS in her left arm pain after fall. Per patient, she tripped and fell earlier this afternoon with immediate complaints of left arm pain. Pain is constant, sharp/throbbing, 10 out of 10, nonradiating, worse with movement. No other injuries reported. On arrival, BP 114/68, HR 82, O2 sat 99% on RA, Afebrile. CBC 15.2. Elbow X-ray negative. Shoulder X-ray fracture proximal humerus. Dr. Degroot consulted by ER physician, plan is for surgical intervention a.m. CBC/BMP: 04/17/17 0609 04/18/17 0832 Significant Findings Laboratory Tests Test 04/16/17 21:30 04/17/17 06:09 04/18/17 08:32 White Blood Count 15.2 TH/MM3 (4.0-11.0) Neutrophils (%) (Auto) 86.8 % (16.0-70.0) Neutrophils # (Auto) 13.2 TH/MM3 (1.8-7.7) Activated Partial Thromboplast Time 22.4 SEC (24.3-30.1) Blood Urea Nitrogen 22 MG/DL (7-18) 23 MG/DL (7-18) Random Glucose 486 MG/DL (74-106) 316 MG/DL (74-106) 221 MG/DL (74-106) Sodium Level 130 MEQ/L (136-145) 134 MEQ/L (136-145) Chloride Level 97 MEQ/L (98-107) Carbon Dioxide Level 17.3 MEQ/L (21.0-32.0) Anion Gap 16 MEQ/L (5-15) Estimat Glomerular Filtration Rate 70 ML/MIN (>89) 66 ML/MIN (>89) Monocytes (%) (Auto) 9.4 % (0.0-8.0) Calcium Level 8.1 MG/DL (8.5-10.1) Imaging Last Impressions Humerus X-Ray 04/17/17 0000 Signed Impressions: Service Date/Time: Monday, April 17, 2017 09:18 - CONCLUSION: Satisfactory post operative appearance of the left humerus following ORIF. Neo Acosta MD Shoulder X-Ray 04/16/17 0000 Signed Impressions: Service Date/Time: Sunday, April 16, 2017 16:17 - CONCLUSION: Fracture proximal humerus. Emery Jolly MD FACR Elbow X-Ray 04/16/17 0000 Signed Impressions: Service Date/Time: Sunday, April 16, 2017 20:40 - CONCLUSION: No evidence of fracture or dislocation. Steven Ventura MD PE at Discharge awake and alert anicteric no nuchal rigidity lungs- no rales regular rhythm abdomen-soft nontender MEHRAN- post op dressing in place LE- no edema Pt update on day of discharge pain controlled afebrile better glucose readings Hospital Course 56 years old right handed female S/P fall S/P ORIF Left proximal Humerus Fracture 04/16- : NWB LUE. pendulum exercises Ortho ff Leukocytosis: Likely reactive secondary to fall/injury.- IMproved DM: last a1C- 9.6 Sliding scale w/ Accu-Cheks. - better readings Increased levemer dose Increase Novolog 15 units with sliding scale (at home was on 18) restart po meds - oral hypoglycemic OP ff up with PCP -reinforced goals Nasal dryness- Saline nasal spray to both nares bid Hyponatremia- improved. Likely secondary to hyperglycemia HTN: BP improved- higher. restart home meds as OP HYperlipedmia- on statins DVT Prophylaxis: Increase activity. SCF- LE Social work for DC planning as needed. Medically stable for DC DC today ff up with PCP- Dr. Camelia Thomas FF up with Ortho in 2 weeks Pt Condition on Discharge: Stable Discharge Disposition: Disch w/ Home Health Serv Discharge Time: <= 30 minutes Discharge Instructions DIET: Follow Instructions for: Heart Healthy Diet, Diabetic Diet Activities you can perform: Regular-No Restrictions, See Additionl Instruction Other Activity Instructions: non weightbearing- LUE do pendulum exercises Follow up Referrals: Orthopedics - [facility] Weeks [facility] with Keith Degroot MD PCP Follow-up - 2-3 Days with Camelia Thomas New Medications: Hydrocodone-Acetaminophen (Hydrocodone-Acetaminophen) 7.5 Mg-325 Mg Tab 1 TAB PO Q4H PRN for PAIN, #60 TAB 0 Refills Continued Medications: Aspirin (Aspirin) 81 Mg Chew 81 MG CHEW DAILY, TAB 0 Refills Cholecalciferol (Vitamin D) 2,000 Unit Tab 5000 Fluticasone Nasal [place] (Fluticasone Nasal [place]) 50 Mcg/Act Naspr 50 MCG EACH NARE BID for Allergy Management, #1 BOTTLE 1 Refill 50 mcg/spray Insulin Glargine (Basaglar Kwikpen) 100 Unit/Ml Pen 60 UNITS SQ HS for Blood Sugar Management, #5 PEN 0 Refills Insulin Lispro (Human) Inj (Humalog Inj) 1,000 Unit/10 Ml Vial 18 UNITS SQ TIDAC for Blood Sugar Management, #1 VIAL 2 Refills Lisinopril-Hctz (Lisinopril-Hctz) 20-12.5 Mg Tab 1 TAB PO DAILY for Blood Pressure Management, #30 TAB 1 Refill Loratadine (Claritin) 10 Mg Cap 10 MG PO DAILY for Allergy Management, #30 CAP 0 Refills Metformin ER (Metformin ER) 500 Mg [place] 500 MG PO DAILY for Blood Sugar Management, TAB 0 Refills With evening meal Misc Natural Products (Tumersaid) 1 Tab Tab Simvastatin (Simvastatin) 40 Mg Tab 40 MG PO HS for Cholesterol Management, #30 TAB 1 Refill Sitagliptin (Januvia) 100 Mg Tab 100 MG PO DAILY for Blood Sugar Management, #30 TAB 0 Refills Papo Jamil MD Apr 19, 2017 08:00
[2017-04-19] MEDS ORDERED: [UNRECOGNIZED DRUG - CODE] EACH NARE (08:05)
[2017-04-19] MEDS: SODIUM CHLOR 0.9% 1000 ML INJ 1,000 ML IV SCH ×2 (08:30→18:30)
[2017-04-19] MEDS: metFORMIN HCL 500 MG TAB PO SCH ×2 (09:00→17:48)
[2017-04-19] MEDS: CROMOLYN SODIUM 5.2 MG/ACT 13 ML NASAL SPRAY EACH NARE SCH ×2 (09:00→21:00)
[2017-04-19] MEDS: SODIUM CHLORIDE 0.9% FLUSH 10 ML FLUSH IV FLUSH SCH ×2 (09:00→21:10)
[2017-04-19] MEDS: LORATADINE 10 MG TAB PO SCH (09:00)
[2017-04-19] MEDS: INSULIN ASPART 1,000 UNITS/10 ML VIAL SQ SCH ×3 (09:09→17:00)
[2017-04-19] MEDS: DOCUSATE SODIUM 50 MG/SENNA 8.6 MG TAB PO SCH ×2 (09:09→21:09)
[2017-04-19] MEDS: CHOLECALCIFEROL (VIT D3) 1000 UNIT TAB PO SCH (09:09)
[2017-04-19] MEDS: CALCIUM/VITAMIN D 250 MG/125 U TAB PO SCH ×3 (09:09→17:41)
[2017-04-19] MEDS: ACETAMINOPHEN/HYDROcodone 325 MG/5 MG TAB PO PRN ×3 (10:30→21:52)
--- NOTE | 2017-04-19 18:28 | PD.ORT.PN ---
Subjective Subjective Remarks POD 2 s/p ORIF left proximal humerus doing well. reports pain but controlled. out of bed on own. Objective Vitals Vital Signs Date Time Temp Pulse Resp B/P (MAP) Pulse Ox O2 Delivery O2 Flow Rate FiO2 04/19/17 12:00 98.6 91 18 141/69 (93) 91 04/19/17 08:01 96.0 85 18 131/65 (87) 92 04/19/17 04:00 98.5 84 22 117/59 (78) 91 04/19/17 00:00 97.3 82 24 140/72 (94) 93 04/18/17 20:00 97.6 86 22 148/66 (93) 93 I/O 04/18/17 04/18/17 04/18/17 04/19/17 04/19/17 04/19/17 07:00 15:00 23:00 07:00 15:00 23:00 Intake Total 1500 ml 1926 ml 600 ml Output Total 150 ml Balance 1500 ml 1776 ml 600 ml Intake Oral 1440 ml 600 ml IV Total 1500 ml 486 ml Output Emesis 150 ml # Voids 10 4 # Bowel Movements 0 0 Result Diagram: 04/17/17 0609 04/18/17 0832 Objective Remarks Sitting up in bed NAD, slightly anxious VSS LUE Dressing/JERRY c/d/i, mild swelling, tender upper arm, +coal miner, +brachiorad, +sens all 5 figners (radial, med, ulnar N) Assessment & Plan Assessment and Plan 1) Left Proximal Humerus Fracture s/p ORIF - POD 2 -NWB -pendular exercises -sling -rx on chart - Reviewed xrays of the humerus fracture with the patient. -DC home today with HHC -f/u with Zane or SHARIFA in 2 weeks Bin Shirley/Medical Accounts Receivable Specialist SHARIFA Apr 19, 2017 18:28
[2017-04-19] MEDS: PRAVASTATIN SOD 80 MG TAB PO SCH (21:09)
[2017-04-19] MEDS: INSULIN DETEMIR 100 UNITS/ML VIAL SQ SCH (21:10)
[2017-04-20 00:14] VITALS: BP 121/61; PULSE 77; RESP 15; TEMP 98; O2SAT 91
[2017-04-20] MEDS: SODIUM CHLOR 0.9% 1000 ML INJ 1,000 ML IV SCH (04:30)
--- NOTE | 2017-04-20 07:00 | PD.ORT.PN ---
Subjective Subjective Remarks Pain controlled in sling and swath Objective Vitals Vital Signs Date Time Temp Pulse Resp B/P (MAP) Pulse Ox O2 Delivery O2 Flow Rate FiO2 04/20/17 00:14 98.0 77 15 121/61 (81) 91 04/19/17 21:02 92 04/19/17 20:00 98.1 90 17 108/53 (71) 91 04/19/17 16:00 99.3 90 18 134/73 (93) 92 04/19/17 12:00 98.6 91 18 141/69 (93) 91 04/19/17 08:01 96.0 85 18 131/65 (87) 92 I/O 04/19/17 04/19/17 04/19/17 04/20/17 04/20/17 04/20/17 07:00 15:00 23:00 07:00 15:00 23:00 Intake Total 600 ml 480 ml 360 ml Balance 600 ml 480 ml 360 ml Intake Oral 600 ml 480 ml 360 ml # Voids 4 2 1 # Bowel Movements 0 Result Diagram: 04/17/17 0609 04/18/17 0832 Objective Remarks Sitting up in bed NAD, slightly anxious VSS LUE Dressing/JERRY c/d/i, mild swelling, tender upper arm, +instant potato processor, +brachiorad, +sens all 5 figners (radial, med, ulnar N) Assessment & Plan Assessment and Plan 1) Left Proximal Humerus Fracture s/p ORIF - POD 3 -NWB -pendular exercises, no active motion of shoulder -sling -rx on chart -DC home today with HHC -f/u with Zane or SHARIFA in 2 weeks Charlie Singh Jr. Apr 20, 2017 06:59
[2017-04-20 07:57] VITALS: BP 136/81; PULSE 77; RESP 18; TEMP 99; O2SAT 93
[2017-04-20] MEDS: INSULIN ASPART SUPPLEMENTAL SCALE SQ SCH (08:00)
[2017-04-20] MEDS: INSULIN ASPART 1,000 UNITS/10 ML VIAL SQ SCH (08:00)
[2017-04-20] MEDS: SODIUM CHLORIDE 0.9% FLUSH 10 ML FLUSH IV FLUSH SCH (08:54)
[2017-04-20] MEDS: CALCIUM/VITAMIN D 250 MG/125 U TAB PO SCH (08:54)
[2017-04-20] MEDS: CROMOLYN SODIUM 5.2 MG/ACT 13 ML NASAL SPRAY EACH NARE SCH (08:54)
[2017-04-20] MEDS: CHOLECALCIFEROL (VIT D3) 1000 UNIT TAB PO SCH (08:54)
[2017-04-20] MEDS: metFORMIN HCL 500 MG TAB PO SCH (08:56)
[2017-04-20] MEDS: LORATADINE 10 MG TAB PO SCH (08:57)
[2017-04-20] MEDS: DOCUSATE SODIUM 50 MG/SENNA 8.6 MG TAB PO SCH (09:00)
--- NOTE | 2017-04-20 09:24 | HHI.PR ---
Subjective Remarks Follow up for left proximal humerus fracture, HTN. The patient is seen with family and RN at bedside. She is ready to go home. Left arm pain under control. Denies any other medical complaints including no headache, lightheadedness, dizziness, chest pain, shortness of breath, or abdominal pain. Counseled on avoiding constipation while on pain meds. Objective Vitals Vital Signs Date Time Temp Pulse Resp B/P (MAP) Pulse Ox O2 Delivery O2 Flow Rate FiO2 04/20/17 07:57 99.0 77 18 136/81 (99) 93 04/20/17 00:14 98.0 77 15 121/61 (81) 91 04/19/17 21:02 92 04/19/17 20:00 98.1 90 17 108/53 (71) 91 04/19/17 16:00 99.3 90 18 134/73 (93) 92 04/19/17 12:00 98.6 91 18 141/69 (93) 91 I/O 04/19/17 04/19/17 04/19/17 04/20/17 04/20/17 04/20/17 07:00 15:00 23:00 07:00 15:00 23:00 Intake Total 600 ml 480 ml 360 ml Balance 600 ml 480 ml 360 ml Intake Oral 600 ml 480 ml 360 ml # Voids 4 2 1 # Bowel Movements 0 Result Diagram: 04/17/17 0609 04/18/17 0832 Imaging Last Impressions Humerus X-Ray 04/17/17 0000 Signed Impressions: Service Date/Time: Monday, April 17, 2017 09:18 - CONCLUSION: Satisfactory post operative appearance of the left humerus following ORIF. Neo Acosta MD Shoulder X-Ray 04/16/17 0000 Signed Impressions: Service Date/Time: Sunday, April 16, 2017 16:17 - CONCLUSION: Fracture proximal humerus. Emery Jolly MD FACR Elbow X-Ray 04/16/17 0000 Signed Impressions: Service Date/Time: Sunday, April 16, 2017 20:40 - CONCLUSION: No evidence of fracture or dislocation. Steven Ventura MD Objective Remarks GENERAL: Well-nourished, well-developed pleasant middle aged female patient in [facility]. SKIN: Warm and dry. No rash. HEENT: Normocephalic. Atraumatic.Pupils equal and round. Mucous membranes pink and moist. CARDIOVASCULAR: Regular rate and rhythm. S1, S2 noted. No murmur appreciated. RESPIRATORY: No accessory muscle use. Clear to auscultation. Breath sounds equal bilaterally. GASTROINTESTINAL: Abdomen soft, non-tender, nondistended. Normoactive bowel sounds x4. MUSCULOSKELETAL: No obvious deformities. LUE in sling. Distal LUE radial pulse 2 +. NEUROLOGICAL: Awake and alert. No obvious cranial nerve deficits. Motor grossly within normal limits. Normal speech. PSYCHIATRIC: Appropriate mood and affect; insight and judgment normal. Procedures 04/16- ORIF left proximal humeral fracture Medications and IVs Current Medications Medications (Trade) Dose Ordered Sig/Yas Route Start Time Stop Time Status Last Admin (D50w (Vial) Inj) 50 ml UNSCH PRN IV PUSH 04/16/17 20:30 (Glucagon Inj) 1 mg UNSCH PRN OTHER 04/16/17 20:30 (NovoLOG SUPPLEMENTAL SCALE) 1 ACHS SLIDING SCALE SQ 04/16/17 21:00 04/20/17 08:00 Sodium Chloride 1,000 ml @ 100 mls/hr Q10H IV 04/16/17 20:30 04/18/17 02:30 (NS Flush) 2 ml UNSCH PRN IV FLUSH 04/16/17 20:30 04/17/17 15:48 (NS Flush) 2 ml BID IV FLUSH 04/16/17 21:00 04/20/17 08:54 (Zofran Inj) 4 mg Q6H PRN IVP 04/16/17 20:30 04/18/17 08:19 (Tylenol) 650 mg Q6H PRN PO 04/16/17 20:30 ([place] 5-325 Mg) 1 tab Q4H PRN PO 04/16/17 20:30 04/19/17 21:52 (Morphine Inj) 2 mg Q3H PRN IV PUSH 04/16/17 20:30 04/17/17 01:35 (Evonne-Colace) 1 tab BID PO 04/16/17 21:00 04/19/17 21:09 (Milk Of Magnesia Liq) 30 ml Q12H PRN PO 04/16/17 20:30 04/18/17 23:49 (Senokot) 17.2 mg Q12H PRN PO 04/16/17 20:30 04/18/17 08:18 (Dulcolax Supp) 10 mg DAILY PRN RECTAL 04/16/17 20:30 (Lactulose Liq) 30 ml DAILY PRN PO 04/16/17 20:30 (Claritin) 10 mg DAILY PO 04/17/17 09:00 04/18/17 22:13 (Pravachol) 80 mg HS PO 04/16/17 21:00 04/19/17 21:09 ([place] 10-325 Mg) 1 tab Q3H PRN PO 04/17/17 10:00 04/18/17 23:45 (Oscal-D 250-125) 250 mg TID PO 04/17/17 13:00 04/20/17 08:54 (Morphine Inj) 4 mg Q3H PRN IV PUSH 04/17/17 10:00 04/17/17 14:28 (Drisdol) 50,000 units Q7D PO 04/17/17 10:00 04/17/17 12:23 (Vitamin D3) 1,000 units DAILY PO 04/18/17 09:00 04/20/17 08:54 (NovoLOG INJ) 15 units TIDAC SQ 04/18/17 12:00 04/20/17 08:00 (Levemir Inj) 30 units HS SQ 04/18/17 21:00 04/19/17 21:10 (Januvia) 100 mg DAILY PO 04/18/17 09:00 (Glucophage) 250 mg BID@0900,1800 PO 04/18/17 09:00 04/20/17 08:56 (Pill Splitter) 1 ea UNSCH PRN OTHER 04/18/17 08:45 (Nasalcrom Hussein Spr) 1 spray BID EACH NARE 04/19/17 09:00 A/P Problem List: (1) Left humeral fracture ICD Code: S42.302A - Unspecified fracture of shaft of humerus, left arm, initial encounter for closed fracture Status: Acute (2) Leukocytosis ICD Code: D72.829 - Elevated white blood cell count, unspecified (3) HTN (hypertension) ICD Code: I10 - Essential (primary) hypertension (4) DM (diabetes mellitus) ICD Code: E11.9 - Type 2 diabetes mellitus without complications Assessment and Plan 56 years old right handed female S/P fall S/P ORIF Left proximal Humerus Fracture 04/16- : NWB LUE. pendulum exercises Ortho ff Leukocytosis: Likely reactive secondary to fall/injury.- Repeat WBC 9.8K. Resolved. DM: last HgbA1C- 9.6 -Sliding scale w/ Accu-Cheks -Increased Levemir dose to 30u sq hs -Continue Novolog 15units tidac and supplement with SSI -Restarted patient's Januvia and Metformin -outpatient follow up with PCP Nasal dryness- Saline nasal spray to both nares bid Hyponatremia- improved. Likely secondary to hyperglycemia. Resolved. Na 138. HTN: BP improved- higher. restart home meds. Hyperlipedmia- on statins DVT Prophylaxis: Increase activity. SCF- LE Case management for DC planning as needed. Medically stable for DC Discharge planned for today Follow up with PCP- Dr. Camelia Azar Follow up with Ortho Dr. Tovar in 2 weeks Discharge Planning Patient being discharged today with [facility]. See discharge summary from 04/19. Leslie Stephens PA-C Apr 20, 2017 9:24 am
[2017-04-20] MEDS ORDERED: [UNRECOGNIZED DRUG - CODE] EACH NARE (09:51)
[2017-04-20] MEDS ORDERED: HYDR-3580 PO (09:51)
[2017-04-20] MEDS: ACETAMINOPHEN/HYDROcodone 325 MG/5 MG TAB PO PRN (10:04)
== END 2017-04-20 12:26 | disposition home health service (06) | DRG 493 ==
LOC: NEPD 15:52 → NEDA 20:22 → N06B 21:42
PROVIDERS: ADMIT Hospitalist; ATTEND Hospitalist
PROC: 0PSG04Z Reposition Left Humeral Shaft with Internal Fixation Device, Open Approach (ICD-10-PCS; principal; 2017-04-17 08:20)
DX: S42.202D Unspecified fracture of upper end of left humerus, subsequent encounter for fracture with routine healing (principal); W01.0XXA Fall on same level from slipping, tripping and stumbling without subsequent striking against object, initial encounter; E87.1 Hypo-osmolality and hyponatremia; E11.65 Type 2 diabetes mellitus with hyperglycemia; Z79.4 Long term (current) use of insulin; Z79.84 Long term (current) use of oral hypoglycemic drugs; I10 Essential (primary) hypertension; E66.3 Overweight; Z68.39 Body mass index [BMI] 39.0-39.9, adult; E78.5 Hyperlipidemia, unspecified; Z79.82 Long term (current) use of aspirin
CPT/HCPCS: 73030; 73060; 73070; 76000; 80048; 80053; 82948; 85025; 85610; 85730; 93005; 94664; 96374; C1713; J0131; J0690; J1100; J1580; J1815; J1885; J2175; J2250; J2270; J2370; J2405; J2710; J3010; J3370; J7030; J7050; J7613